=== PATIENT | female | born 1945 | race Caucasian/White ===

== ENCOUNTER 2016-04-25 09:08 | Inpatient (IN) | payer MEDICARE ==
[~2016-04-25] VITALS: Ht 162.6 cm; Wt 65.0 kg
[2016-04-25] VITALS (10 sets, daily range): BP systolic 99–118; BP diastolic 50–73; PULSE 73–102; RESP 16–22; TEMP 97.4–98.9; O2SAT 89–95
[2016-04-25] MEDS ORDERED: FLUV20CA3 PO (09:36)
[2016-04-25] MEDS ORDERED: ALBUAER3 INH (09:36)
[2016-04-25] MEDS ORDERED: CITA20TA4 PO (09:36)
[2016-04-25] MEDS ORDERED: LEVO25TA4 PO (09:36)
[2016-04-25] MEDS ORDERED: SYMB160A INH (09:36)
[2016-04-25] MEDS ORDERED: EQ A PO (09:36)
[2016-04-25] MEDS ORDERED: SPIRCAP INH (09:36)
[2016-04-25] MEDS ORDERED: FEXO1TAB41 PO (09:36)
[2016-04-25] MEDS ORDERED: methylPREDNISolone SOD SUCC 125 MG/2 ML VIAL IVP ONE (10:15)
[2016-04-25] MEDS ORDERED: SODIUM CHLORIDE 0.9% FLUSH 5 ML FLUSH IVF PRN ×2 (10:15→14:15)
--- NOTE | 2016-04-25 10:20 | PD ---
HPI Chief Complaint: Cold / Flu Symptoms Time Seen by Provider: 10:11 Travel History International Travel<30 days: No Contact w/Intl Traveler<30days: No History of Present Illness HPI Patient is a 71-year-old female with history of COPD, hypertension, emergency room with complaints of cough, congestion, COPD exacerbation for the past 3 days. Patient reports that she has been here in [place] visiting a friend, reports that she arrived here 3 days ago from [place], reports that since she has been here, she has had increased cough, congestion and productive sputum. Patient reports that she has been wheezing, reports no fevers or chills. Reports exacerbation of her COPD. Patient reports that she does not use home O2 at baseline, reports that she has since quit smoking cigarettes. Denies any chest pain at this time. PFSH Past Medical History Cancer: Yes (BREAST CA) Respiratory: Yes Radiation Therapy: Yes Thyroid Disease: Yes Influenza Vaccination: Yes ?: Not LMP: 1986 Menopausal: Yes Past Surgical History Tonsillectomy: Yes Other Surgery: Yes (CANCER REMOVED FROM LEFT BREAST) Social History Alcohol Use: Yes (rarely) Tobacco Use: No Substance Use: No Allergies-Medications (Allergen,Severity, Reaction): Coded Allergies: Codeine (Verified Adverse Reaction, Severe, VOMITING, 04/25/16) Reported Meds & Prescriptions Reported Meds & Active Scripts Active Reported Mucinex Allergy (Fexofenadine HCl) 180 Mg Tab 180 Mg PO DAILY Proair Hfa 8.5 GM Inh (Albuterol Sulfate) 90 Mcg/Act Aer 2 Puff INH Q6H PRN 108 mcg/actuation Symbicort Inh (Budesonide/Formoterol Fumarate) 160-4.5 Mcg/Act Aero 2 Puff INH Q12HR Citalopram (Citalopram Hydrobromide) 20 Mg Tab 20 Mg PO HS Spiriva Handihaler (Tiotropium Inh) 18 Mcg Cap 18 Mcg INH DAILY 1 capsule = 18 mcg Eq Allergy Relief (Loratadine) 10 Mg Tab 10 Mg PO DAILY Fluvastatin (Fluvastatin Sodium) 20 Mg Cap 20 Mg PO BID Levothyroxine (Levothyroxine Sodium) 25 Mcg Tab 20 Mcg PO DAILY Review of Systems General / Constitutional: No: Fever, Chills Eyes: No: Visual changes HENT: No: Headaches Cardiovascular: No: Chest Pain or Discomfort, Palpitations, Irregular Rhythm Respiratory: Positive: Cough, Shortness of Breath, Wheezing Gastrointestinal: No: Abdominal Pain Genitourinary: Positive: Urgency, Frequency, Dysuria Musculoskeletal: No: Pain Skin: No Rash Neurologic: No: Weakness Psychiatric: No: Depression Endocrine: No: Polydipsia Hematologic/Lymphatic: No: Easy Bruising Physical Exam Narrative GENERAL: Mild distress SKIN: Warm and dry. HEAD: Atraumatic. Normocephalic. EYES: No injection or drainage. ENT: No nasal bleeding or discharge. Mucous membranes pink and moist. NECK: Trachea midline. No JVD. CARDIOVASCULAR: Regular rate and rhythm. No murmur appreciated. RESPIRATORY: No accessory muscle use. Patient with scattered wheezing throughout upper and lower lungs GASTROINTESTINAL: Abdomen soft, non-tender, nondistended. Hepatic and splenic margins not palpable. MUSCULOSKELETAL: No obvious deformities. No clubbing. No cyanosis. No edema. NEUROLOGICAL: Awake and alert. No obvious cranial nerve deficits. Motor grossly within normal limits. Normal speech. PSYCHIATRIC: Appropriate mood and affect; insight and judgment normal. Data Data Last Documented VS Vital Signs Date Time Temp Pulse Resp B/P Pulse Ox O2 Delivery O2 Flow Rate FiO2 04/25/16 11:17 73 22 118/57 92 Room Air 04/25/16 10:15 21 04/25/16 09:29 2 04/25/16 09:17 98.9 Orders Complete Blood Count With Diff (04/25/16 10:14) Comprehensive Metabolic Panel (04/25/16 10:14) Act Partial Throm Time (Ptt) (04/25/16 10:14) Prothrombin Time / Inr (Pt) (04/25/16 10:14) Influenzae A/B Antigen (04/25/16 10:14) Iv Access Insert/Monitor (04/25/16 10:14) Oximetry (04/25/16 10:14) Chest, Single Ap (04/25/16 10:14) Sodium Chloride 0.9% Flush (Ns Flush) (04/25/16 10:15) Methylprednisolone So Succ Inj (Solumedr (04/25/16 10:15) Albuterol-Ipratropium Neb (Duoneb Neb) (04/25/16 10:15) Urinalysis - C+S If Indicated (04/25/16 10:14) Electrocardiogram (04/25/16 ) B-Type Natriuretic Peptide (04/25/16 10:45) Ckmb (Isoenzyme) Profile (04/25/16 10:45) Troponin I (04/25/16 10:45) Urine Culture (04/25/16 10:35) CKMB (04/25/16 10:30) CKMB% (04/25/16 10:30) Azithromycin Inj (Zithromax Inj) (04/25/16 12:00) Ceftriaxone Inj (Rocephin Inj) (04/25/16 12:00) Albuterol Neb (Albuterol Neb) (04/25/16 12:15) Aspirin (Aspirin) (04/25/16 12:15) Admit Order (Ed Use Only) (04/25/16 12:32) Labs Laboratory Tests Test 04/25/16 04/25/16 10:30 10:35 White Blood Count 8.5 TH/MM3 Red Blood Count 4.77 MIL/MM3 Hemoglobin 14.2 GM/DL Hematocrit 41.4 % Mean Corpuscular Volume 86.7 FL Mean Corpuscular Hemoglobin 29.8 PG Mean Corpuscular Hemoglobin 34.4 % Concent Red Cell Distribution Width 14.0 % Platelet Count 324 TH/MM3 Mean Platelet Volume 8.4 FL Neutrophils (%) (Auto) 78.3 % Lymphocytes (%) (Auto) 9.7 % Monocytes (%) (Auto) 10.8 % Eosinophils (%) (Auto) 0.5 % Basophils (%) (Auto) 0.7 % Neutrophils # (Auto) 6.7 TH/MM3 Lymphocytes # (Auto) 0.8 TH/MM3 Monocytes # (Auto) 0.9 TH/MM3 Eosinophils # (Auto) 0.0 TH/MM3 Basophils # (Auto) 0.1 TH/MM3 CBC Comment DIFF FINAL Differential Comment Prothrombin Time 11.3 SEC Prothromb Time International 1.0 RATIO Ratio Activated Partial 30.3 SEC Thromboplast Time Sodium Level 134 MEQ/L Potassium Level 4.2 MEQ/L Chloride Level 102 MEQ/L Carbon Dioxide Level 23.6 MEQ/L Anion Gap 8 MEQ/L Blood Urea Nitrogen 14 MG/DL Creatinine 0.96 MG/DL Estimat Glomerular Filtration 58 ML/MIN Rate Random Glucose 102 MG/DL Calcium Level 8.4 MG/DL Total Bilirubin 0.8 MG/DL Aspartate Amino Transf 16 U/L (AST/SGOT) Alanine Aminotransferase 17 U/L (ALT/SGPT) Alkaline Phosphatase 92 U/L Total Creatine Kinase 134 U/L Creatine Kinase MB LESS THAN 0.5 NG/ML Troponin I LESS THAN 0.02 NG/ML B-Type Natriuretic Peptide 32 PG/ML Total Protein 7.3 GM/DL Albumin 3.5 GM/DL Urine Color YELLOW Urine Turbidity HAZY Urine pH 6.0 Urine Specific [place] 1.023 Urine Protein 30 mg/dL Urine Glucose (UA) NEG mg/dL Urine Ketones NEG mg/dL Urine Occult Blood TRACE Urine Nitrite NEG Urine Bilirubin NEG Urine Urobilinogen 2.0 MG/DL Urine Leukocyte Esterase LARGE Urine RBC 8 /hpf Urine WBC /hpf Urine Squamous Epithelial <1 /hpf Cells Urine Bacteria FEW /hpf Urine Mucus FEW /lpf Microscopic Urinalysis Comment CULTURE INDICATED MDM Medical Decision Making Medical Screen Exam Complete: Yes Emergency Medical Condition: Yes Interpretation(s) Vital Signs Date Time Temp Pulse Resp B/P Pulse Ox O2 Delivery O2 Flow Rate FiO2 04/25/16 09:29 82 16 114/73 95 Nasal Cannula 2 04/25/16 09:17 98.9 91 17 116/73 94 Differential Diagnosis Pneumonia, influenza, COPD exacerbation, ACS, electrolyte abnormality, pneumothorax Narrative Course Patient is a 71-year-old female who presents to emergency room with complaints of COPD exacerbation. Patient reports that she just arrived on a plane to [place] from [place] 3 days ago, reports that for the past 3 days, she has had increased cough congestion and thick mucus production. Patient reports that she was a past smoker, does not wear home O2. Patient reports that her pulse ox is always in the low 90s, high 80s. Reports no fevers or chills. Reports increased cough congestion and wheezing for the past 3 days. Reports COPD exacerbation this time. Patient with diffuse wheezing on exam, neb treatments as well as IV steroids ordered. Labs as well as x-ray chest ordered as well. Patient reevaluated, patient had 3 neb treatments, patient reports she is not feeling any better at all. No obvious for COPD exacerbation. Patient also with UTI, will treat with an IV dose of Rocephin. Patient's EKG with normal sinus rhythm at 71 beats for minute, QT/QTC 372/325. Patient with ST segment depressions in V1, V2, V3, V4, patient with ischemic changes with no chest pain at this time. Patient reports that she was told by her primary care doctor that she always has an abnormal EKG. We'll give patient aspirin at this time. Cardiac enzymes ordered. Physician Communication Physician Communication case reviewed with dr. freeman who accepts pt to service Diagnosis Primary Impression: COPD exacerbation Additional Impressions: UTI (urinary tract infection) Abnormal EKG Admitting Information Admitting Physician Requests: Observation Ann De Jesus DO Apr 25, 2016 10:20
--- NOTE | 2016-04-25 10:42 | RADRPT ---
EXAM DATE/TIME: 04/25/2016 10:12 [facility] COMPARISON: No previous studies available for comparison. INDICATIONS : Coughing for three days MEDICAL HISTORY : Chronic obstructive pulmonary disease. SURGICAL HISTORY : None. ENCOUNTER: Initial ACUITY: 3 days PAIN SCORE: 0/10 LOCATION: Bilateral chest FINDINGS: A single AP erect view of the chest was obtained and demonstrates hyperinflation of both lungs. There is streaky coarse opacity at both lung bases with no focal consolidation or effusion. The heart size is within normal limits with no perihilar edema. There is bullous change in the upper lobes. The bon y thorax is intact with surgical clips projected over the left lateral breast and chest wall. CONCLUSION: 1. Changes characteristic of underlying emphysema. 2. Coarse streaky opacity at the lung bases most consistent with scarring and/or atelectasis. Fran Harrison MD on April 25, 2016 at 10:40 Board Certified Radiologist. This report was verified electronically.
[2016-04-25 10:45] LABS: AUTOMATED NEUTROPHIL # 6.7 TH/MM3 (1.8-7.7); BASOPHIL # 0.1 TH/MM3 (0-0.2); BASOPHIL % 0.7 % (0.0-2.0); EOSINOPHIL % 0.5 % (0.0-4.0); HEMATOCRIT 41.4 % (35.0-46.0); HEMO FLAGS DIFF FINAL; LYMPH % 9.7 % (9.0-44.0); LYMPHOCYTE # 0.8 TH/MM3 (1.0-4.8); MEAN CELL VOLUME 86.7 FL (80.0-100.0); MEAN CORPUSCULAR HEMOGLOBIN 29.8 PG (27.0-34.0); MEAN CORPUSCULAR HGB CONC 34.4 % (32.0-36.0); MONO % 10.8 % (0.0-8.0); NEUT % 78.3 % (16.0-70.0); PLATELET COUNT 324 TH/MM3 (150-450); RED BLOOD COUNT 4.77 MIL/MM3 (4.00-5.30); WHITE BLOOD COUNT 8.5 TH/MM3 (4.0-11.0)
[2016-04-25 10:52] LABS: APTT (PATIENT) 30.3 SEC (24.3-30.1); PROTHROMBIN TIME - PATIENT 11.3 SEC (9.8-11.6)
[2016-04-25 10:59] LABS: ALT (GPT) 17 U/L (10-53); ANION GAP 8 MEQ/L (5-15); AST (GOT) 16 U/L (15-37); BICARBONATE 23.6 MEQ/L (21.0-32.0); BLOOD UREA NITROGEN 14 MG/DL (7-18); CHLORIDE 102 MEQ/L (98-107); GLOMERULAR FILTRATION RATE 58 ML/MIN (>89); POTASSIUM 4.2 MEQ/L (3.5-5.1); SODIUM (NA) 134 MEQ/L (136-145)
[2016-04-25 11:02] LABS: ALKALINE PHOSPHATASE 92 U/L (45-117); TOTAL BILIRUBIN ADULT 0.8 MG/DL (0.2-1.0)
[2016-04-25 11:07] LABS: BACTERIA, URINE FEW /hpf; BLOOD, URINE TRACE (NEG); COMMENT (UR) CULTURE INDICATED; CULTURE IF INDICATED CULTURE INDICATED; GLUCOSE,URINE NEG (NEG); KETONE, URINE NEG (NEG); MUCUS URINE FEW /lpf (OCC); NITRITE,URINE NEG (NEG); SQUAMOUS EPITHELIAL CELL URINE <1 /hpf (0-5); URINE COLOR YELLOW (YELLW/STRAW)
[2016-04-25 11:18] LABS: CREATINE KINASE 134 U/L (26-192)
[2016-04-25] MEDS: RESP: ALBUTEROL 2.5 MG/IPRATROPIUM 0.5 MG NEB (SCH) INH ×2 (11:29→11:30)
[2016-04-25 11:39] LABS: CKMB LESS THAN 0.5 NG/ML (0.5-3.6)
[2016-04-25] MEDS ORDERED: cefTRIAXone INJ 1,000 MG in SODIUM CHLORIDE 0.9% INJ 100 ML IV ONE (12:00)
[2016-04-25] MEDS ORDERED: AZITHROMYCIN INJ 500 MG in SODIUM CHLOR 0.9% 250 ML INJ 250 ML IV ONE (12:00)
[2016-04-25] MEDS ORDERED: RESP: ALBUTEROL 2.5 MG/3 ML NEB (SCH) INH ONE (12:15)
[2016-04-25] MEDS ORDERED: ASPIRIN 325 MG TAB PO ONE (12:15)
--- NOTE | 2016-04-25 13:28 | HHI.HP ---
[facility] Service Family Medicine Primary Care Physician Non-Staff Admission Diagnosis COPD Exacerbation Diagnoses: International Travel<30 Days: No Contact w/Intl Traveler<30days: No History of Present Illness Patient is a 71-year-old female with past medical history significant for COPD, hyperlipidemia, anxiety, hypothyroidism presenting due to shortness of breath. Patient reports that she began to develop a cough on 04/22 and since this time her cough has become worse and she is progressively more short of breath. She has used her Spiriva, Symbicort, pro-air and has tried Mucinex and Vicks rub without any improvement. Cough is productive of thick green sputum. She has been able to walk 300 feet before she needs to stop due to shortness of breath. She last saw her medical technician in February who ordered pulmonary function tests; however, patient has not been able to have this done. She denies any prior COPD exacerbations. She has not had fevers, chills and denies any sick contacts. She traveled to [place] from [place] on April 22. She is staying with friends until the end of May. (Mary Rosenberg MD R2) Review of Systems Constitutional: DENIES: Fever, Chills Eyes: COMPLAINS OF: Blurred vision (Chronic) Ears, nose, mouth, throat: DENIES: Vertigo Respiratory: COMPLAINS OF: Cough, Wheezing, Sputum production, Shortness of breath Cardiovascular: COMPLAINS OF: Palpitations, DENIES: Chest pain, Lower Extremity Edema Gastrointestinal: COMPLAINS OF: Abdominal pain, Constipation, DENIES: Diarrhea , Nausea, Vomiting Genitourinary: COMPLAINS OF: Urinary incontinence (new over the past several days), DENIES: Urinary frequency, Dysuria Musculoskeletal: COMPLAINS OF: Back pain Integumentary: DENIES: Rash Neurologic: DENIES: Headache Psychiatric: DENIES: Anxiety, Mood changes (Mary Rosenberg MD R2) Past Family Social History Past Medical History COPD/emphysema Anxiety Hypothyroidism Breast cancer removed in 2011 s/p 3 months radiation Hyperlipemia Past Surgical History Lumpectomy Skin growths removed Tubal ligation in 1977 Reported Medications Reported Meds & Active Scripts Active Reported Mucinex Allergy (Fexofenadine HCl) 180 Mg Tab 180 Mg PO DAILY Proair Hfa 8.5 GM Inh (Albuterol Sulfate) 90 Mcg/Act Aer 2 Puff INH Q6H PRN SOB 108 mcg/actuation Symbicort Inh (Budesonide/Formoterol Fumarate) 160-4.5 Mcg/Act Aero 2 Puff INH Q12HR Citalopram (Citalopram Hydrobromide) 20 Mg Tab 20 Mg PO HS Spiriva Handihaler (Tiotropium Inh) 18 Mcg Cap 18 Mcg INH DAILY 1 capsule = 18 mcg Eq Allergy Relief (Loratadine) 10 Mg Tab 10 Mg PO DAILY Fluvastatin (Fluvastatin Sodium) 20 Mg Cap 20 Mg PO BID Levothyroxine (Levothyroxine Sodium) 25 Mcg Tab 20 Mcg PO DAILY (Mary Rosenberg MD R2) Allergies: Coded Allergies: Codeine (Verified Adverse Reaction, Severe, VOMITING, 04/25/16) Active Ordered Medications Inpatient Medications Albuterol Sulfate (Albuterol Neb) 2.5 mg Q2HR NEB PRN INH SHORTNESS OF BREATH; Start 04/25/16 at 14:15 Albuterol Sulfate (Proair Hfa Inh) 2 puff Q6H PRN INH SHORTNESS OF BREATH; Start 04/25/16 at 14:15 Albuterol/ Ipratropium 1 ampule 1 ampule Q15M INH Last administered on 11:30; Start 04/25/16 at 10:15; Stop 04/25/16 at 10:46; Status DC Aspirin (Aspirin) 325 mg ONCE ONCE PO Last administered on 04/25/16 12:59; Start 04/25/16 at 12:15; Stop 04/25/16 at 12:16; Status DC Azithromycin (Zithromax) 500 mg Q24H PO ; Start 04/26/16 at 12:00; Stop at 11:59 Azithromycin/ Sodium Chloride (Zithromax Inj/ NS 250 ml Inj) 250 ml @ 250 mls/ hr ONCE ONCE IV Last administered on 04/25/16 12:08; Start 04/25/16 at 12:00 ; Stop 04/25/16 at 12:59; Status DC Budesonide/ Formoterol Fumarate (Symbicort 160-4.5 Inh) 2 puff Q12HR INH ; Start 04/25/16 at 21:00 Ceftriaxone Sodium/Sodium Chloride (Rocephin Inj/NS Inj) 100 ml @ 200 mls/hr Q24H IV ; Start 04/26/16 at 12:00 Citalopram Hydrobromide (CeleXA) 20 mg HS PO ; Start 04/25/16 at 21:00 Heparin Sodium (Porcine) (Heparin Inj) 5,000 units Q8H SQ Last administered on 04/25/16t 14:56; Start 04/25/16 at 15:00 IV Flush (NS Flush) 2 ml UNSCH PRN IVF FLUSH AFTER USING IV ACCESS; Start 04/25 at 14:15 Levothyroxine Sodium (Synthroid) 25 mcg DAILY@06 PO ; Start 04/26/16 at 06:00 Loratadine (Claritin) 10 mg DAILY PO ; Start 04/26/16 at 09:00 Methylprednisolone Sodium Succinate (SoluMEDROL INJ) 125 mg ONCE ONCE IVP Last administered on 04/25/16t 10:42; Start 04/25/16 at 10:15; Stop 04/25/16 at 10:17; Status DC Pravastatin Sodium (Pravachol) 20 mg HS PO ; Start 04/25/16 at 21:00 Prednisone 40 mg 40 mg DAILY PO ; Start 04/26/16 at 09:00 Tiotropium [place] (Spiriva Inh) 18 mcg DAILY INH ; Start 04/26/16 at 09:00 Family History Mother: HTN, Breast cancer at 90, Alzheimer's Father: 94, prostate cancer, brothers with hx of colonoscopy Social History 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 Lives in [place]. 40 years 2 PPD, quit 14 years ago. Drinks occasionally, wine or malt beverages. Denies illicit drug use. (Mary Rosenberg MD R2) Physical Exam Vital Signs Vital Signs Date Time Temp Pulse Resp B/P Pulse Ox O2 Delivery O2 Flow Rate FiO2 04/25/16 11:17 73 22 118/57 92 Room Air 04/25/16 10:15 92 21 04/25/16 09:29 82 16 114/73 95 Nasal Cannula 2 04/25/16 09:17 98.9 91 17 116/73 94 Physical Exam GENERAL: This is a well-nourished, well-developed patient, in no acute cardiopulmonary distress. SKIN: No rashes, ecchymoses or lesions. Cool and dry. HEAD: Atraumatic. Normocephalic. No temporal or scalp tenderness. EYES: Pupils equal round and reactive. Extraocular motions intact. No scleral icterus. No injection or drainage. ENT: Nose without bleeding, purulent drainage or septal hematoma. Throat without erythema, tonsillar hypertrophy or exudate. Uvula midline. Airway patent. NECK: Trachea midline. No JVD or lymphadenopathy. Supple, nontender, no meningeal signs. CARDIOVASCULAR: Regular rate and rhythm without murmurs, gallops, or rubs. RESPIRATORY: Normal work of breathing. Diffuse inspiratory and expiratory wheezing. Rhonchi heard in lung bases bilaterally. No use of accessory muscles. Patient speaking in full sentences. GASTROINTESTINAL: Abdomen soft, non-tender, nondistended. No hepato-splenomegaly , or palpable masses. No guarding. MUSCULOSKELETAL: Extremities without clubbing, cyanosis, trace lower extremity edema to knee bilaterally. No joint tenderness, effusion, or edema noted. No calf tenderness. Negative Homans sign bilaterally. NEUROLOGICAL: Awake and alert. Cranial nerves II through XII intact. Motor and sensory grossly within normal limits. Five out of 5 muscle strength in all muscle groups. Normal speech. Laboratory Laboratory Tests Test 04/25/16 04/25/16 10:30 10:35 White Blood Count 8.5 Red Blood Count 4.77 Hemoglobin 14.2 Hematocrit 41.4 Mean Corpuscular Volume 86.7 Mean Corpuscular Hemoglobin 29.8 Mean Corpuscular Hemoglobin 34.4 Concent Red Cell Distribution Width 14.0 Platelet Count 324 Mean Platelet Volume 8.4 Neutrophils (%) (Auto) 78.3 Lymphocytes (%) (Auto) 9.7 Monocytes (%) (Auto) 10.8 Eosinophils (%) (Auto) 0.5 Basophils (%) (Auto) 0.7 Neutrophils # (Auto) 6.7 Lymphocytes # (Auto) 0.8 Monocytes # (Auto) 0.9 Eosinophils # (Auto) 0.0 Basophils # (Auto) 0.1 CBC Comment DIFF FINAL Differential Comment Prothrombin Time 11.3 Prothromb Time International 1.0 Ratio Activated Partial 30.3 Thromboplast Time Sodium Level 134 Potassium Level 4.2 Chloride Level 102 Carbon Dioxide Level 23.6 Anion Gap 8 Blood Urea Nitrogen 14 Creatinine 0.96 Estimat Glomerular Filtration 58 Rate Random Glucose 102 Calcium Level 8.4 Total Bilirubin 0.8 Aspartate Amino Transf 16 (AST/SGOT) Alanine Aminotransferase 17 (ALT/SGPT) Alkaline Phosphatase 92 Total Creatine Kinase 134 Creatine Kinase MB LESS THAN 0.5 Troponin I LESS THAN 0.02 B-Type Natriuretic Peptide 32 Total Protein 7.3 Albumin 3.5 Urine Color YELLOW Urine Turbidity HAZY Urine pH 6.0 Urine Specific [place] 1.023 Urine Protein 30 Urine Glucose (UA) NEG Urine Ketones NEG Urine Occult Blood TRACE Urine Nitrite NEG Urine Bilirubin NEG Urine Urobilinogen 2.0 Urine Leukocyte Esterase LARGE Urine RBC 8 Urine WBC Urine Squamous Epithelial <1 Cells Urine Bacteria FEW Urine Mucus FEW Microscopic Urinalysis Comment CULTURE INDICATED Date/Time Procedure Status Source Growth 04/25/16 10:35 Urine Culture Received Urine Clean Catch Pending 04/25/16 10:30 Influenza Types A,B Antigen (JACQUELINE) - Final Complete Nasal Aspirate NEGATIVE FOR FLU A AND B ANTIGEN.... (Mary Rosenberg MD R2) Result Diagram: 04/25/16 1030 04/25/16 1030 Imaging Last 24 hours Impressions Chest X-Ray 04/25/16 1014 Signed Impressions: Service Date/Time: Monday, April 25, 2016 10:12 - CONCLUSION: 1. Changes characteristic of underlying emphysema. 2. Coarse streaky opacity at the lung bases most consistent with scarring and/or atelectasis. Fran Harrison MD (Mary Rosenberg MD R2) Assessment and Plan Assessment and Plan Patient is a 71-year-old female with past medical history significant for COPD, hyperlipidemia, anxiety, hypothyroidism presenting due to shortness of breath, admitted with COPD exacerbation Code Status Full Discussed Condition With wdw Dr. Membreno, Dr. Cosme, Dr. Kendrick (Mary Rosenberg MD R2) Problem List: (1) COPD exacerbation Status: Acute Plan: Patient admitted due to COPD exacerbation. O2 saturations ranging between 9294 percent on 2 L of nasal cannula. -Supplemental oxygen as needed -DuoNeb's Q6hrs -Rocephin 1 g IV Q24hrs -Azithromycin 500 mg po daily -Prednisone 40 mg po daily -Albuterol [id number] prn SOB -Continue home medications: Pro-air 2 puffs Q6hrs PRN SOB Symbicort 2 puffs BID Spiriva 18mg inh daily Loratadine 10 mg daily Imaging: CXR 04/25/16: Changes characteristic of underlying emphysema. Coarse streaky opacity at the lung bases most consistent with scarring and or atelectasis. History: Patient received Solu-Medrol 125 mg 1 in the ED (2) Abnormal EKG Status: Acute Plan: Patient reports history of abnormal EKG. She has been told that her EKG is abnormal several times in the past. She does not recall the exact abnormality. -EKG in the ED shows sinus rhythm, normal axis, ST deviation and moderate T- wave abnormality. -Initial troponin less than 0.02, total creatinine kinase 134, CK-MB less than 0.5 -We'll get a repeat EKG and set of cardiac enzymes, patient is currently asymptomatic and denies chest pain. (3) UTI (urinary tract infection) Status: Acute Plan: UA with hazy appearance, 30+ protein, trace occult blood, large leuk esterase, 8 red blood cells, few bacteria, few mucus, culture indicated. -Patient currently being treated for COPD exacerbation with Rocephin which will also cover for UTI -Pt denies urinary symptoms -See COPD exacerbation above (4) Anxiety Status: Acute Plan: Continue home citalopram (5) Hyperlipemia Status: Acute Plan: Fluvastatin is not currently available on hospital formulary -Converted to pravastatin 20 mg po HS (6) FEN/PPX Status: Acute Plan: Fluids: None Electrolytes: Sodium slightly low at 134, continue to monitor Nutrition: Heart healthy diet DVT PPX: Heparin (Mary Rosenberg MD R2) Mary Rosenberg MD R2 Apr 25, 2016 13:28 Swetha Membreno MD Apr 26, 2016 09:23
[2016-04-25] MEDS ORDERED: RESP: ALBUTEROL 2.5 MG/3 ML NEB (PRN) INH (14:15)
[2016-04-25] MEDS ORDERED: ALBUTEROL SULFATE 90 MCG/ACT HFA 8 GM INHALER INH PRN (14:15)
[2016-04-25] MEDS: HEPARIN SODIUM - SQ 10,000 UNITS/ML VIAL SQ SCH ×2 (14:56→22:47)
--- NOTE | 2016-04-25 16:39 | HHI.FPPN ---
Subjective Subjective Patient seen and examined. 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 She denies any chest pain, LE edema, nausea, diaphoresis She has a history of tobacco dependence but has not been hospitalized for her COPD in the past and no prior intubations. She denies fevers at home, but presented after her breathing became progressively worse. [facility] Objective Objective Last Impressions Chest X-Ray 04/25/16 1014 Signed Impressions: Service Date/Time: Monday, April 25, 2016 10:12 - CONCLUSION: 1. Changes characteristic of underlying emphysema. 2. Coarse streaky opacity at the lung bases most consistent with scarring and/or atelectasis. Fran Harrison MD Laboratory Tests - Abnormals Test 04/25/16 04/25/16 10:30 10:35 Neutrophils (%) (Auto) 78.3 % Monocytes (%) (Auto) 10.8 % Lymphocytes # (Auto) 0.8 TH/MM3 Activated Partial 30.3 SEC Thromboplast Time Sodium Level 134 MEQ/L Estimat Glomerular Filtration 58 ML/MIN Rate Calcium Level 8.4 MG/DL Creatine Kinase MB LESS THAN 0.5 NG/ML Troponin I LESS THAN 0.02 NG/ML Urine Turbidity HAZY Urine Protein 30 mg/dL Urine Occult Blood TRACE Urine Leukocyte Esterase LARGE Urine RBC 8 /hpf Urine Bacteria FEW /hpf Urine Mucus FEW /lpf Vital Signs 04/25/16 04/25/16 04/25/16 04/25/16 09:17 09:29 10:15 11:17 Temp 98.9 Pulse 91 82 73 Resp 17 16 22 B/P 116/73 114/73 118/57 Pulse Ox 94 95 92 92 O2 Delivery Nasal Cannula Room Air O2 Flow Rate 2 FiO2 21 04/25/16 14:16 Pulse 102 Resp 20 B/P 99/50 Pulse Ox 92 O2 Delivery Nasal Cannula O2 Flow Rate 2 Physical exam GENERAL: Pleasant, thin female, NAD, resting in her hospital bed SKIN: Warm and dry. No rashes HEAD: Normocephalic AT. EYES: No scleral icterus. No injection or drainage. ENT: OP clear. MMM. NC in place. NECK: Supple, trachea midline. No JVD or lymphadenopathy. CARDIOVASCULAR: Regular rate and rhythm without audible murmurs, gallops, or rubs. RESPIRATORY: Breath sounds with extensive exp wheezing across posterior lung acharya. Mild scattered crackles. Prolonged expiratory phase. GASTROINTESTINAL: Abdomen soft, non-tender, nondistended. Thin, no rebound, guarding. MUSCULOSKELETAL: No cyanosis, or edema. No calf tenderness. BACK: Nontender without obvious deformity. No CVA tenderness. NEURO: Awake and alert. Normal speech. CN grossly intact. Assessment Assessment 71yoF admitted with: Acute exacerbation of COPD UTI with history of recurrent UTI HTN Hx tobacco dependence, now in remission Hx L breast CA s/p lumpectomy Stress test 2 years ago neg for ischemia PLAN PLAN Supplemental oxygen as needed Duonebs Empiric antibiotic therapy with Rocephin, Azithro Sputum culture UA with urine culture Prednisone therapy Resume home meds as appropriate Patient seen and examined. Case reviewed and discussed Agree with plan of care as discussed with me and documented in the resident note. Swetha Membreno MD Apr 25, 2016 16:39
[2016-04-25 17:22] LABS: CREATINE KINASE 129 U/L (26-192)
[2016-04-25 17:33] LABS: CKMB 0.7 NG/ML (0.5-3.6)
[2016-04-25] MEDS: RESP: ALBUTEROL 2.5 MG/IPRATROPIUM 0.5 MG NEB (SCH) NEB (19:57)
[2016-04-25] MEDS: SODIUM CHLORIDE 0.9% FLUSH 5 ML FLUSH IVF SCH (20:29)
[2016-04-25] MEDS: CITALOPRAM HYDROBROMIDE 20 MG TAB PO SCH (20:42)
[2016-04-25] MEDS: BUDESONIDE-FORMOTEROL 160/4.5 MCG INHALER INH SCH (20:42)
[2016-04-25] MEDS: PRAVASTATIN SOD 10 MG TAB PO SCH (20:42)
[2016-04-26] VITALS (7 sets, daily range): BP systolic 108–130; BP diastolic 66–80; PULSE 70–108; RESP 16–22; TEMP 97.4–101; O2SAT 91–95
[2016-04-26] MEDS: LEVOTHYROXINE SODIUM 25 MCG TAB PO SCH (06:14)
[2016-04-26] MEDS: HEPARIN SODIUM - SQ 10,000 UNITS/ML VIAL SQ SCH ×3 (06:15→22:56)
[2016-04-26 07:04] LABS: BASOPHIL % 0.3 % (0.0-2.0); HEMATOCRIT 39.7 % (35.0-46.0); HEMO FLAGS DIFF FINAL; LYMPHOCYTE # 0.8 TH/MM3 (1.0-4.8); MEAN CELL VOLUME 86.6 FL (80.0-100.0); MEAN CORPUSCULAR HEMOGLOBIN 29.6 PG (27.0-34.0); MEAN CORPUSCULAR HGB CONC 34.1 % (32.0-36.0); MONO % 8.9 % (0.0-8.0); NEUT % 83.8 % (16.0-70.0); PLATELET COUNT 319 TH/MM3 (150-450); RED BLOOD COUNT 4.58 MIL/MM3 (4.00-5.30); RED CELL DISTRIBUTION WIDTH 14.3 % (11.6-17.2); WHITE BLOOD COUNT 10.8 TH/MM3 (4.0-11.0)
[2016-04-26 07:28] LABS: BICARBONATE 23.3 MEQ/L (21.0-32.0); POTASSIUM 4.1 MEQ/L (3.5-5.1)
--- NOTE | 2016-04-26 08:15 | EKG ---
Date Performed: 04/25/2016 Time Performed: 10:40:34 PTAGE: 71 years EKG: Sinus rhythm ST DEVIATION AND MODERATE T-WAVE ABNORMALITY, CONSIDER ANTEROLATERAL ISCHEMIA ABNORMAL ECG NO PREVIOUS TRACING DOCTOR: Drew Rosenberg Interpretating Date/Time 04/26/2016 08:13:27
[2016-04-26] MEDS ORDERED: predniSONE 20 MG TAB PO SCH (09:00)
[2016-04-26] MEDS: RESP: ALBUTEROL 2.5 MG/IPRATROPIUM 0.5 MG NEB (SCH) NEB ×4 (09:49→19:59)
[2016-04-26] MEDS ORDERED: CALCIUM CARBONATE 1.25 GM (CA 500 MG) TAB PO ONE (10:30)
[2016-04-26] MEDS ORDERED: BENZONATATE 100 MG CAP PO PRN (10:30)
[2016-04-26] MEDS: cefTRIAXone INJ 1,000 MG in SODIUM CHLORIDE 0.9% INJ 100 ML IV SCH (11:26)
[2016-04-26] MEDS: PANTOPRAZOLE SOD 40 MG DELAYED RELEASE TAB PO SCH (11:26)
[2016-04-26] MEDS: LORATADINE 10 MG TAB PO SCH (11:26)
[2016-04-26] MEDS: BUDESONIDE-FORMOTEROL 160/4.5 MCG INHALER INH SCH ×2 (11:27→22:55)
[2016-04-26] MEDS: SODIUM CHLORIDE 0.9% FLUSH 5 ML FLUSH IVF SCH ×2 (11:27→22:55)
[2016-04-26] MEDS: AZITHROMYCIN 250 MG TAB PO SCH (11:27)
[2016-04-26] MEDS: TIOTROPIUM BROMIDE 18 MCG INH INH SCH (12:25)
--- NOTE | 2016-04-26 14:10 | HHI.FPPN ---
Subjective Remarks Pt seen and examined. Patient has been afebrile, RR 16-22, O2 saturation ranging from 8992 percent on 23 liters nasal cannula. She continues to feel short of breath no significant improvement this morning. She endorses a productive cough. Denies chest pain, abdominal pain, leg pain. (Mary Rosenberg MD R2) Objective Vitals Vital Signs Date Time Temp Pulse Resp B/P Pulse Ox O2 Delivery O2 Flow Rate FiO2 04/26/16 11:28 98.6 88 16 108/66 92 04/26/16 09:51 92 Nasal Cannula 2.00 04/26/16 07:42 98.3 71 22 115/69 93 04/26/16 05:54 97.4 70 18 108/66 91 04/25/16 23:46 97.4 76 18 102/56 91 04/25/16 22:02 97.4 86 18 109/58 91 04/25/16 20:25 95 22 116/61 89 Nasal Cannula 3 04/25/16 19:58 95 Nasal Cannula 3.00 04/25/16 16:48 84 20 105/57 91 Nasal Cannula 2 04/25/16 14:16 102 20 99/50 92 Nasal Cannula 2 (Mary Rosenberg MD R2) Result Diagram: 04/26/16 0604/26/16 06 Objective Remarks GENERAL: This is a well-nourished, well-developed patient. SKIN: No rashes, ecchymoses or lesions. Cool and dry. HEENT: Atraumatic. Normocephalic. Extraocular motions intact. No scleral icterus. Uvula midline. Airway patent. CARDIOVASCULAR: Regular rate and rhythm without murmurs, gallops, or rubs. RESPIRATORY: Increased work of breathing. Diffuse inspiratory and expiratory wheezing. Decreased breath sounds and crackles in lung bases bilaterally. No use of accessory muscles. Patient speaking in shorter sentences. GASTROINTESTINAL: Abdomen soft, non-tender, nondistended. + bowel sounds. MUSCULOSKELETAL: Extremities without clubbing, cyanosis, trace lower extremity edema to knee bilaterally. No calf tenderness. Negative Homans sign bilaterally. NEUROLOGICAL: Awake and alert. Motor and sensory grossly within normal limits. Normal speech. (Mary Rosenberg MD R2) A/P Assessment and Plan Patient is a 71-year-old female with past medical history significant for COPD, hyperlipidemia, anxiety, hypothyroidism presenting due to shortness of breath, admitted with COPD exacerbation Discharge Planning Discharge pending improvement in respiratory status. Likely [address] Membreno, Dr. Cosme. Dr. Kendrick, Dr. Stockton (Mary Rosenberg MD R2) Attending Attestation Patient seen and examined with the resident team. Case reviewed and discussed. Agree with plan of care as discussed with me and documented in the resident note. Breathing slightly worse today compared to admission. Denies chest pain. Will increase prednisone to IV Solu-Medrol. (Swetha Membreno MD) Problem List: (1) COPD exacerbation Status: Acute Plan: Patient admitted due to COPD exacerbation. O2 saturations ranging between 8992 percent on 2-3 L of nasal cannula. -Supplemental oxygen as needed -DuoNeb's Q4hrs while awake -Rocephin 1 g IV Q24hrs -Azithromycin 500 mg po daily -Albuterol [id number] prn SOB -Solu-Medrol 40 mg IV Q8hrs -Tessalon Perles PRN cough -Robitussin-DM prn cough -Sputum culture pending -Pulmonary function tests ordered -Continue home medications: Pro-air 2 puffs Q6hrs PRN SOB Symbicort 2 puffs BID Spiriva 18mg inh daily Loratadine 10 mg daily Imaging: CXR 04/25/16: Changes characteristic of underlying emphysema. Coarse streaky opacity at the lung bases most consistent with scarring and or atelectasis. (2) Abnormal EKG Status: Acute Plan: Patient reports history of abnormal EKG. She has been told that her EKG is abnormal several times in the past. She does not recall the exact abnormality. -EKG in the ED shows sinus rhythm, normal axis, ST deviation and moderate T- wave abnormality. -Initial troponin less than 0.02, total creatinine kinase 134, CK-MB less than 0.5 -We'll get a repeat EKG and set of cardiac enzymes, patient is currently asymptomatic and denies chest pain. (3) UTI (urinary tract infection) Status: Acute Plan: UA with hazy appearance, 30+ protein, trace occult blood, large leuk esterase, 8 red blood cells, few bacteria, few mucus, culture indicated. -Patient currently being treated for COPD exacerbation with Rocephin which will also cover for UTI -Urine culture final showing 10-50,000 mixed gram-positive juan, probable contaminant -Pt denies urinary symptoms -See COPD exacerbation above (4) Anxiety Status: Acute Plan: Continue home citalopram (5) Hyperlipemia Status: Acute Plan: -Pravastatin 20 mg po HS (6) Insomnia Status: Acute Plan: Melatonin 5 mg po HS prn (7) Hypothyroidism Status: Acute Plan: Levothyroxine 25 g po daily (8) FEN/PPX Status: Acute Plan: Fluids: None Electrolytes: Calcium low at 8.3, calcium carbonate 500 mg po x1, continue to monitor Nutrition: Heart healthy diet DVT PPX: Heparin GI PPX: Protonix (Mary Rosenberg MD R2) Mary Rosenberg MD R2 Apr 26, 2016 14:10 Swetha Membreno MD Apr 26, 2016 16:00
[2016-04-26] MEDS: methylPREDNISolone SOD SUCC 40 MG/1 ML VIAL IV PUSH SCH ×2 (15:03→22:55)
[2016-04-26] MEDS ORDERED: ONDANSETRON HCL 4 MG/2 ML VIAL IV PUSH PRN (15:30)
[2016-04-26] MEDS ORDERED: guaiFENesin/DEXTROMETHORPHAN 200 MG/20 MG/10 ML CUP PO PRN (15:30)
[2016-04-26] MEDS ORDERED: cloNIDine HCL 0.1 MG TAB PO PRN (15:30)
--- NOTE | 2016-04-26 17:38 | HHI.PR ---
Addendum to Inpatient Note Addendum Reason: Additional Documentation Additional Information S: Pt re-evaluated because of c/f lack of improvement this morning. Pt reports improvement this afternoon. Nausea med and cough meds helping. O: Vital Signs Date Time Temp Pulse Resp B/P Pulse Ox O2 Delivery O2 Flow Rate FiO2 04/26/16 15:57 100.9 108 18 130/74 92 04/26/16 09:51 Nasal Cannula 2.00 04/25/16 10:15 21 Gen: Pt lying in bed in NAD Resp: Coarse inspiratory breath sounds and expiratory wheezes, diffusely A/P: Pt with COPD exacerbation now improving. - continue Magui Hyman, Tessalon, IV steroids, abx sdw Dr. Mary Rosenberg. Fran Kendrick MD R1 Apr 26, 2016 17:38
[2016-04-26] MEDS ORDERED: ACETAMINOPHEN 325 MG TAB PO PRN ×2 (18:30)
[2016-04-26] MEDS: CITALOPRAM HYDROBROMIDE 20 MG TAB PO SCH (22:55)
[2016-04-26] MEDS: PRAVASTATIN SOD 10 MG TAB PO SCH (22:55)
[2016-04-26] MEDS: MELATONIN 5 MG TAB PO PRN (22:56)
[2016-04-27] VITALS (10 sets, daily range): BP systolic 100–117; BP diastolic 61–70; PULSE 65–75; RESP 18–22; TEMP 97.2–98.8; O2SAT 91–98
[2016-04-27] MEDS: LEVOTHYROXINE SODIUM 25 MCG TAB PO SCH (06:22)
[2016-04-27] MEDS: methylPREDNISolone SOD SUCC 40 MG/1 ML VIAL IV PUSH SCH ×3 (06:22→22:30)
[2016-04-27] MEDS: HEPARIN SODIUM - SQ 10,000 UNITS/ML VIAL SQ SCH ×3 (06:45→22:33)
[2016-04-27 07:01] LABS: AUTOMATED NEUTROPHIL # 8.2 TH/MM3 (1.8-7.7); BASOPHIL % 0.1 % (0.0-2.0); HEMATOCRIT 40.5 % (35.0-46.0); HEMO FLAGS DIFF FINAL; LYMPH % 7.9 % (9.0-44.0); LYMPHOCYTE # 0.7 TH/MM3 (1.0-4.8); MEAN CELL VOLUME 88.2 FL (80.0-100.0); MEAN CORPUSCULAR HEMOGLOBIN 29.6 PG (27.0-34.0); MEAN CORPUSCULAR HGB CONC 33.6 % (32.0-36.0); PLATELET COUNT 318 TH/MM3 (150-450); RED BLOOD COUNT 4.59 MIL/MM3 (4.00-5.30); RED CELL DISTRIBUTION WIDTH 14.2 % (11.6-17.2); WHITE BLOOD COUNT 9.4 TH/MM3 (4.0-11.0)
[2016-04-27 07:24] LABS: POTASSIUM 4.9 MEQ/L (3.5-5.1)
[2016-04-27] MEDS: BUDESONIDE-FORMOTEROL 160/4.5 MCG INHALER INH SCH ×2 (08:12→22:28)
[2016-04-27] MEDS: TIOTROPIUM BROMIDE 18 MCG INH INH SCH (08:12)
[2016-04-27] MEDS: SODIUM CHLORIDE 0.9% FLUSH 5 ML FLUSH IVF SCH ×2 (08:13→22:29)
[2016-04-27] MEDS: LORATADINE 10 MG TAB PO SCH (08:13)
[2016-04-27] MEDS: PANTOPRAZOLE SOD 40 MG DELAYED RELEASE TAB PO SCH (08:13)
[2016-04-27] MEDS: RESP: ALBUTEROL 2.5 MG/IPRATROPIUM 0.5 MG NEB (SCH) NEB ×4 (09:02→20:51)
--- NOTE | 2016-04-27 09:57 | HHI.FPPN ---
Subjective Remarks Pt seen and examined this morning. No acute events overnight. Pt reports that her breathing has improved from yesterday. Continues to feel short of breath with walking. Continues to have a productive cough, cough medications have been helping. She is not yet back at baseline. Currently on 4L NC, O2 saturation 88. (Mary Rosenberg MD R2) Objective Vitals Vital Signs Date Time Temp Pulse Resp B/P Pulse Ox O2 Delivery O2 Flow Rate FiO2 04/27/16 09:02 93 Nasal Cannula 4.00 04/27/16 07:43 98.0 65 22 117/70 91 04/27/16 05:19 97.2 67 18 112/65 93 04/27/16 04:15 98 2.00 04/27/16 00:31 97.7 69 18 113/68 96 04/26/16 19:39 97.8 86 18 118/80 95 04/26/16 18:18 101.0 04/26/16 15:57 100.9 108 18 130/74 92 04/26/16 11:28 98.6 88 16 108/66 92 (Mary Rosenberg MD R2) Result Diagram: 04/27/16 0625 04/27/16 0625 Objective Remarks GENERAL: This is a well-nourished, well-developed patient. In no acute respiratory distress. SKIN: No rashes, ecchymoses or lesions. Cool and dry. HEENT: Atraumatic. Normocephalic. Extraocular motions intact. No scleral icterus. Uvula midline. Airway patent. CARDIOVASCULAR: Regular rate and rhythm without murmurs, gallops, or rubs. RESPIRATORY: Occasional wheeze in upper lung acharya, diffuse crackles. Normal work of breathing. Decreased breath sounds at lung bases bilaterally. No use of accessory muscles, normal work of breathing. Patient speaking in full sentences. GASTROINTESTINAL: Abdomen soft, non-tender, nondistended. + bowel sounds. MUSCULOSKELETAL: Extremities without clubbing, cyanosis, trace lower extremity edema to knee bilaterally. No calf tenderness. Negative Homans sign bilaterally. NEUROLOGICAL: Awake and alert. Motor and sensory grossly within normal limits. Normal speech. (Mary Rosenberg MD R2) A/P Assessment and Plan Patient is a 71-year-old female with past medical history significant for COPD, hyperlipidemia, anxiety, hypothyroidism presenting due to shortness of breath, admitted with COPD exacerbation Discharge Planning Discharge pending improvement in respiratory status. Likely [address] Membreno (Mary Rosenberg MD R2) Attending Attestation Patient seen and examined. Case reviewed and discussed with the resident team Agree with plan of care as discussed with me and documented in the resident note. Patient reports feeling better with increase in steroids CTA ordered given persistent hypoxia in patient with recent travel to r/o PE. ( Swetha Membreno MD) Problem List: (1) COPD exacerbation Status: Acute Plan: Patient admitted due to COPD exacerbation. Patient requiring 2-4 L of nasal cannula. -Supplemental oxygen as needed -DuoNeb's Q4hrs while awake -Rocephin 1 g IV Q24hrs -Azithromycin 500 mg po daily -Albuterol [id number] prn SOB -Solu-Medrol 40 mg IV Q8hrs, will decreased and change to PO as pt improves -Tessalon Perles scheduled TID -Robitussin-DM scheduled Q6hrs -Sputum culture from 04/25 with heavy growth of normal respiratory juan -Pulmonary function tests ordered -Consider follow-up chest x-ray -Continue home medications: Pro-air 2 puffs Q6hrs PRN SOB Symbicort 2 puffs BID Spiriva 18mg inh daily Loratadine 10 mg daily Imaging: CXR 04/25/16: Changes characteristic of underlying emphysema. Coarse streaky opacity at the lung bases most consistent with scarring and or atelectasis. (2) Abnormal EKG Status: Acute Plan: Patient reports history of abnormal EKG. She has been told that her EKG is abnormal several times in the past. She does not recall the exact abnormality. -EKG in the ED shows sinus rhythm, normal axis, ST deviation and moderate T- wave abnormality. -Initial troponin less than 0.02 x2, total creatinine kinase 134-->129, CK-MB less than 0.5-->0.7 -Patient continues to be asymptomatic, denies chest pain . (3) UTI (urinary tract infection) Status: Acute Plan: UA with hazy appearance, 30+ protein, trace occult blood, large leuk esterase, 8 red blood cells, few bacteria, few mucus, culture indicated. -Patient currently being treated for COPD exacerbation with Rocephin which will also cover for UTI -Urine culture final showing 10-50,000 mixed gram-positive juan, probable contaminant -Pt denies urinary symptoms -See COPD exacerbation above (4) Anxiety Status: Acute Plan: -Continue home citalopram (5) Hyperlipemia Status: Acute Plan: -Pravastatin 20 mg po HS (6) Insomnia Status: Acute Plan: -Melatonin 5 mg po HS prn (7) Hypothyroidism Status: Acute Plan: Levothyroxine 25 g po daily (8) FEN/PPX Status: Acute Plan: Fluids: None Electrolytes: WNL, continue to monitor Nutrition: Heart healthy diet DVT PPX: Heparin GI PPX: Protonix (Mary Rosenberg MD R2) Mary Rosenberg MD R2 Apr 27, 2016 09:57 Swetha Membreno MD Apr 28, 2016 15:34
[2016-04-27] MEDS: guaiFENesin/DEXTROMETHORPHAN 200 MG/20 MG/10 ML CUP PO SCH ×2 (12:00→17:20)
[2016-04-27] MEDS: cefTRIAXone INJ 1,000 MG in SODIUM CHLORIDE 0.9% INJ 100 ML IV SCH (12:21)
[2016-04-27] MEDS: AZITHROMYCIN 250 MG TAB PO SCH (12:22)
[2016-04-27] MEDS: BENZONATATE 100 MG CAP PO SCH ×2 (12:32→17:52)
[2016-04-27] MEDS ORDERED: IOHEXOL 350 MG/ML 10 ML VIAL (for RAD DIAG) IV ONE (17:30)
--- NOTE | 2016-04-27 17:43 | RADRPT ---
EXAM DATE/TIME: 04/27/2016 17:22 [facility] COMPARISON: No previous studies available for comparison. INDICATIONS : COPD exacerbation with shortness of breath and chest pain worsening progressively. IV CONTRAST: 50 cc Omnipaque 350 (iohexol) IV RADIATION DOSE: 7.25 CTDIvol (mGy) MEDICAL HISTORY : Carcinoma, breast. Radiation therapy. SURGICAL HISTORY : None. ENCOUNTER: Initial ACUITY: 1 week PAIN SCALE: 4/10 LOCATION: Bilateral chest TECHNIQUE: Volumetric scanning of the chest was performed using a pulmonary embolism protocol MIP images were re constructed. Using automated exposure control and adjustment of the mA and/or kV according to patien t size, radiation dose was kept as low as reasonably achievable to obtain optimal diagnostic quality images. FINDINGS: PULMONARY ARTERIES: No filling defects are seen in the pulmonary arteries through the segmental level. LUNGS: Severe, bilateral emphysematous changes. PLEURAE: There is no pleural thickening or pleural effusion. MEDIASTINUM: There is good visualization of the great vessels of the middle mediastinum. No evidence of mediastin al or hilar adenopathy/mass. MUSCULOSKELETAL: Within normal limits for patient age. MISCELLANEOUS: The visualized upper abdominal organs demonstrate no acute abnormality. Small gallstones are seen in gallbladder lumen. CONCLUSION: 1. Emphysematous changes with no acute infiltrate or pulmonary embolus. 2. Cholelithiasis. Villa Gallegos MD on April 27, 2016 at 17:38 Board Certified Radiologist. This report was verified electronically.
[2016-04-27] MEDS: PRAVASTATIN SOD 10 MG TAB PO SCH (22:29)
[2016-04-27] MEDS: CITALOPRAM HYDROBROMIDE 20 MG TAB PO SCH (22:29)
[2016-04-27] MEDS: MELATONIN 5 MG TAB PO PRN (22:37)
--- NOTE | 2016-04-27 23:15 | EKG ---
Date Performed: 04/25/2016 Time Performed: 16:32:27 PTAGE: 71 years EKG: Sinus rhythm ST DEVIATION AND MODERATE T-WAVE ABNORMALITY, CONSIDER ANTEROLATERAL ISCHEMIA ABNORMAL ECG PREVIOUS TRACING : 04/25/2016 10.40 DOCTOR: Jacqueline Jacobs Interpretating Date/Time 04/27/2016 23:10:59
[2016-04-28] VITALS (7 sets, daily range): BP systolic 105–126; BP diastolic 56–63; PULSE 64–87; RESP 18–22; TEMP 98–98.7; O2SAT 91–98
[2016-04-28] MEDS: guaiFENesin/DEXTROMETHORPHAN 200 MG/20 MG/10 ML CUP PO SCH ×6 (00:42→22:28)
[2016-04-28] MEDS: methylPREDNISolone SOD SUCC 40 MG/1 ML VIAL IV PUSH SCH ×2 (06:14→14:15)
[2016-04-28] MEDS: HEPARIN SODIUM - SQ 10,000 UNITS/ML VIAL SQ SCH ×3 (06:14→22:29)
[2016-04-28] MEDS: LEVOTHYROXINE SODIUM 25 MCG TAB PO SCH (06:14)
[2016-04-28 06:31] LABS: MEAN CELL VOLUME 86.5 FL (80.0-100.0); MEAN CORPUSCULAR HGB CONC 34.7 % (32.0-36.0); PLATELET COUNT 303 TH/MM3 (150-450); RED BLOOD COUNT 4.28 MIL/MM3 (4.00-5.30); RED CELL DISTRIBUTION WIDTH 14.1 % (11.6-17.2); REVIEW FLAG FINAL; WHITE BLOOD COUNT 8.6 TH/MM3 (4.0-11.0)
[2016-04-28 06:44] LABS: POTASSIUM 4.4 MEQ/L (3.5-5.1)
[2016-04-28] MEDS: RESP: ALBUTEROL 2.5 MG/IPRATROPIUM 0.5 MG NEB (SCH) NEB ×4 (07:29→20:32)
[2016-04-28] MEDS: PANTOPRAZOLE SOD 40 MG DELAYED RELEASE TAB PO SCH (09:21)
[2016-04-28] MEDS: SODIUM CHLORIDE 0.9% FLUSH 5 ML FLUSH IVF SCH ×2 (09:21→14:18)
[2016-04-28] MEDS: TIOTROPIUM BROMIDE 18 MCG INH INH SCH (09:21)
[2016-04-28] MEDS: LORATADINE 10 MG TAB PO SCH (09:21)
[2016-04-28] MEDS: BUDESONIDE-FORMOTEROL 160/4.5 MCG INHALER INH SCH ×2 (09:21→20:47)
[2016-04-28] MEDS: BENZONATATE 100 MG CAP PO SCH ×3 (09:22→16:26)
--- NOTE | 2016-04-28 11:09 | HHI.FPPN ---
Subjective Remarks Overnight, patient had blood pressure 100s over 50s to 60s, oxygen saturation 92 -95% on 4 L nasal cannula, and then 91 and 95% on 2 L nasal cannula, otherwise afebrile and vital signs stable. Patient reports feeling much better today. She denies any fever, chills, shortness of breath, dyspnea on exertion, chest pain, shortness of breath. She reports that she was able to walk to the bedside commode and then to the sink to wash her hands without any significant shortness of breath. Patient reports constipation. She reports that she has not had a bowel movement in a couple days. (Fran Kendrick MD R1) Objective Vitals Vital Signs Date Time Temp Pulse Resp B/P Pulse Ox O2 Delivery O2 Flow Rate FiO2 04/28/16 07:48 98.1 71 19 113/57 91 04/28/16 07:31 95 Nasal Cannula 2.00 04/28/16 06:22 95 Nasal Cannula 4.00 04/28/16 04:13 98.7 64 18 106/58 97 04/27/16 23:56 98.8 69 18 108/61 97 04/27/16 20:51 94 Nasal Cannula 4.00 04/27/16 20:44 98.1 70 18 100/65 97 04/27/16 15:39 75 18 102/67 93 04/27/16 12:13 98.5 71 20 106/62 92 04/27/16 12:12 I/O 04/27/16 04/27/16 04/27/16 04/28/16 04/28/16 04/28/16 07:00 15:00 23:00 07:00 15:00 23:00 Intake Total 100 ml 640 ml Balance 100 ml 640 ml Intake Oral 640 ml IV Total 100 ml # Voids 2 # Bowel Movements 1 (Fran Kendrick MD R1) Result Diagram: 04/28/16 0601 04/28/[address] Angiography 04/27/16 0000 Signed Impressions: Service Date/Time: Wednesday, April 27, 2016 17:22 - CONCLUSION: 1. Emphysematous changes with no acute infiltrate or pulmonary embolus. 2. Cholelithiasis. Villa Gallegos MD Chest X-Ray 04/25/16 1014 Signed Impressions: Service Date/Time: Monday, April 25, 2016 10:12 - CONCLUSION: 1. Changes characteristic of underlying emphysema. 2. Coarse streaky opacity at the lung bases most consistent with scarring and/or atelectasis. Fran Harrison MD Objective Remarks GENERAL: This is a well-nourished, well-developed woman patient. In no acute respiratory distress. Nasal cannula in place to 2 L/m. SKIN: No rashes, ecchymoses or lesions. Cool and dry. HEENT: Atraumatic. Normocephalic. Extraocular motions intact. No scleral icterus. Moist mucous membranes. Airway patent. CARDIOVASCULAR: Regular rate and rhythm without murmurs, gallops, or rubs. RESPIRATORY: Expiratory wheezes throughout. No use of accessory muscles, normal work of breathing. Patient speaking in full sentences. GASTROINTESTINAL: Abdomen soft, non-tender, nondistended. + bowel sounds. MUSCULOSKELETAL: Extremities without clubbing, cyanosis, trace lower extremity edema to knee bilaterally. No calf tenderness. NEUROLOGICAL: Awake and alert. Motor and sensory grossly within normal limits. Normal speech. (Fran Kendrick MD R1) A/P Assessment and Plan Patient is a 71-year-old female with past medical history significant for COPD, anxiety, hypothyroidism presenting due to shortness of breath, admitted with COPD exacerbation Discharge Planning Discharge pending improvement in respiratory status. Likely [address] Membreno (Fran Kendrick MD R1) Attending Attestation Patient seen and examined. Case reviewed and discussed Agree with plan of care as discussed with me and documented in the resident note. (Swetha Membreno MD) Problem List: (1) COPD exacerbation Status: Acute Plan: Patient admitted due to COPD exacerbation. Patient requiring 2 L/m of nasal cannula. -Supplemental oxygen as needed; wean oxygen to keep oxygen saturations above 89% -DuoNeb's Q4hrs while awake -Rocephin 1 g IV Q24hrs (04/26-04/28) -Azithromycin 500 mg po daily (04/26-04/28) -Levaquin 750 mg by mouth daily for a total of 5 days, so 2 more days starting tomorrow -Probiotic Lactinex 1 tab by mouth 3 times a day -Albuterol nebulizer Q2hrs prn SOB -Discontinued Solu-Medrol 40 mg IV Q8hrs -Prednisone 50 mg by mouth daily -Tesjorge Doe scheduled TID -Robitussin-DM scheduled Q6hrs -Pulmonary function tests ordered -Consider follow-up chest x-ray -Home O2 walk test tomorrow -Continue home medications: Pro-air 2 puffs Q6hrs PRN SOB Symbicort 2 puffs BID Spiriva 18mg inh daily Loratadine 10 mg daily Imaging: CXR 04/25/16: Changes characteristic of underlying emphysema. Coarse streaky opacity at the lung bases most consistent with scarring and or atelectasis. Work up: -Sputum culture from 04/25 with heavy growth of normal respiratory juan -Blood culture with no growth to date Antibiotic history: (2) Constipation Status: Acute Plan: Patient reports constipation. She reports that she has not had a bowel movement in a couple days. Cathleen-Colace one tab by mouth twice a day MiraLAX 17 g by mouth daily when necessary for constipation (3) Abnormal EKG Status: Acute Plan: Patient reports history of abnormal EKG. She has been told that her EKG is abnormal several times in the past. She does not recall the exact abnormality. -EKG in the ED shows sinus rhythm, normal axis, ST deviation and moderate T- wave abnormality. -Initial troponin less than 0.02 x2, total creatinine kinase 134-->129, CK-MB less than 0.5-->0.7 -Patient continues to be asymptomatic, denies chest pain . (4) UTI (urinary tract infection) Status: Acute Plan: UA with hazy appearance, 30+ protein, trace occult blood, large leuk esterase, 8 red blood cells, few bacteria, few mucus, culture indicated. -Patient currently being treated for COPD exacerbation with Rocephin which will also cover for UTI -Urine culture final showing 10-50,000 mixed gram-positive juan, probable contaminant -Pt denies urinary symptoms -See COPD exacerbation above (5) Anxiety Status: Acute Plan: -Continue home citalopram (6) Hyperlipemia Status: Acute Plan: -Pravastatin 20 mg po HS (7) Insomnia Status: Acute Plan: -Melatonin 5 mg po HS prn (8) Hypothyroidism Status: Acute Plan: Levothyroxine 25 g po daily (9) FEN/PPX Status: Acute Plan: Fluids: None Electrolytes: WNL, continue to monitor Nutrition: Heart healthy diet DVT PPX: Heparin GI PPX: Protonix (Fran Kendrick MD R1) Fran Kendrick MD R1 Apr 28, 2016 11:09 Swetha Membreno MD May 02, 2016 09:13
[2016-04-28] MEDS ORDERED: POLYETHYLENE GLYCOL 17 GM PKG PO PRN (11:15)
[2016-04-28] MEDS: DOCUSATE SODIUM 50 MG/SENNA 8.6 MG TAB PO SCH ×2 (14:14→20:48)
[2016-04-28] MEDS: cefTRIAXone INJ 1,000 MG in SODIUM CHLORIDE 0.9% INJ 100 ML IV SCH (14:14)
[2016-04-28] MEDS: LACTOBACILLUS ACIDOPHILUS TAB PO SCH ×2 (14:18→16:26)
[2016-04-28] MEDS ORDERED: LEVOFLOXACIN 750 MG TAB PO SCH (16:00)
[2016-04-28] MEDS ORDERED: AZITHROMYCIN 250 MG TAB PO ONE (16:00)
[2016-04-28] MEDS: predniSONE 50 MG TAB PO SCH (16:27)
[2016-04-28] MEDS: PRAVASTATIN SOD 10 MG TAB PO SCH (20:48)
[2016-04-28] MEDS: MELATONIN 5 MG TAB PO PRN (20:48)
[2016-04-28] MEDS: CITALOPRAM HYDROBROMIDE 20 MG TAB PO SCH (20:48)
[2016-04-28] MEDS: CALCIUM CARBONATE 500 MG CHEWABLE TAB CHEW SCH (23:15)
[2016-04-29] VITALS: BP 132/78; PULSE 88; RESP 21; TEMP 98.8; O2SAT 98
[2016-04-29 04:13] VITALS: BP 123/68; PULSE 66; RESP 18; TEMP 98.8; O2SAT 98
[2016-04-29] MEDS: guaiFENesin/DEXTROMETHORPHAN 200 MG/20 MG/10 ML CUP PO SCH ×2 (05:48→13:47)
[2016-04-29] MEDS: HEPARIN SODIUM - SQ 10,000 UNITS/ML VIAL SQ SCH ×2 (06:14→13:46)
[2016-04-29] MEDS: LEVOTHYROXINE SODIUM 25 MCG TAB PO SCH (06:14)
[2016-04-29 07:31] VITALS: BP 134/74; PULSE 63; RESP 14; TEMP 98.1; O2SAT 94
[2016-04-29 07:45] LABS: HEMATOCRIT 36.4 % (35.0-46.0); MEAN CELL VOLUME 87.7 FL (80.0-100.0); MEAN CORPUSCULAR HEMOGLOBIN 29.8 PG (27.0-34.0); MEAN CORPUSCULAR HGB CONC 33.9 % (32.0-36.0); PLATELET COUNT 303 TH/MM3 (150-450); RED BLOOD COUNT 4.16 MIL/MM3 (4.00-5.30); RED CELL DISTRIBUTION WIDTH 14.2 % (11.6-17.2); REVIEW FLAG FINAL; WHITE BLOOD COUNT 10.2 TH/MM3 (4.0-11.0)
[2016-04-29 08:05] LABS: BICARBONATE 26.7 MEQ/L (21.0-32.0); POTASSIUM 4.2 MEQ/L (3.5-5.1)
[2016-04-29] MEDS: RESP: ALBUTEROL 2.5 MG/IPRATROPIUM 0.5 MG NEB (SCH) NEB ×2 (08:17→12:48)
[2016-04-29] MEDS ORDERED: LEVOFLOXACIN 750 MG TAB PO SCH (09:00)
[2016-04-29] MEDS: CALCIUM CARBONATE 500 MG CHEWABLE TAB CHEW SCH (09:17)
[2016-04-29] MEDS: DOCUSATE SODIUM 50 MG/SENNA 8.6 MG TAB PO SCH (09:18)
[2016-04-29] MEDS: LACTOBACILLUS ACIDOPHILUS TAB PO SCH ×2 (09:18→13:48)
[2016-04-29] MEDS: BENZONATATE 100 MG CAP PO SCH ×2 (09:18→13:47)
[2016-04-29] MEDS: SODIUM CHLORIDE 0.9% FLUSH 5 ML FLUSH IVF SCH (09:18)
[2016-04-29] MEDS: predniSONE 50 MG TAB PO SCH (09:18)
[2016-04-29] MEDS: TIOTROPIUM BROMIDE 18 MCG INH INH SCH (09:19)
[2016-04-29] MEDS: LORATADINE 10 MG TAB PO SCH (09:19)
[2016-04-29] MEDS: BUDESONIDE-FORMOTEROL 160/4.5 MCG INHALER INH SCH (09:19)
[2016-04-29] MEDS: PANTOPRAZOLE SOD 40 MG DELAYED RELEASE TAB PO SCH (09:19)
[2016-04-29] MEDS ORDERED: LEVA750T PO (10:05)
[2016-04-29] MEDS ORDERED: PRED10 PO (10:05)
[2016-04-29] MEDS ORDERED: PANT40TA3 PO (10:05)
--- NOTE | 2016-04-29 10:07 | HHI.DCPOC ---
Discharge Care Plan Diagnosis: (1) Insomnia (2) Anxiety (3) Hyperlipemia (4) Hypothyroidism (5) Abnormal EKG (6) COPD exacerbation Goals to Promote Your Health * To prevent worsening of your condition and complications * To maintain your health at the optimal level Directions to Meet Your Goals Take your medications as prescribed Follow your dietary instruction Follow activity as directed Keep your appointments as scheduled Take your immunizations and boosters as scheduled If your symptoms worsen call your PCP, if no PCP go to Urgent Care Center or Emergency Room Smoking is Dangerous to Your Health. Avoid second hand smoke Call the 24-hour hour crisis hotline for domestic abuse at Mary Rosenberg MD R2 Apr 29, 2016 10:07
[2016-04-29] MEDS ORDERED: OXYGENTANK NAS.CANULA (10:08)
--- NOTE | 2016-04-29 10:08 | HHI.FPPN ---
Subjective Remarks Pt seen and examined this morning. No acute events overnight. Breathing is significantly improved. She continues to have an occasional productive cough. Denies chest pain, abdominal pain, calf pain. Pt reports feeling back at her baseline. (Mary Rosenberg MD R2) Objective Vitals Vital Signs Date Time Temp Pulse Resp B/P Pulse Ox O2 Delivery O2 Flow Rate FiO2 04/29/16 08:21 Nasal Cannula 2.00 04/29/16 07:31 98.1 63 14 134/74 94 04/29/16 04:13 98.8 66 18 123/68 98 04/29/16 00:00 98.8 88 21 132/78 98 04/28/16 20:29 98.0 73 21 126/63 98 04/28/16 16:38 98.0 87 20 125/62 95 04/28/16 15:40 2.00 04/28/16 11:35 98.3 69 22 105/56 94 I/O 04/28/16 04/28/16 04/28/16 04/29/16 04/29/16 04/29/16 07:00 15:00 23:00 07:00 15:00 23:00 Intake Total 640 ml Balance 640 ml Intake Oral 640 ml # Voids 2 # Bowel Movements 1 (Mary Rosenberg MD R2) Result Diagram: 04/29/1672404/29/16724 Objective Remarks GENERAL: This is a well-nourished, well-developed woman patient. In no acute respiratory distress. Nasal cannula in place to 2 L/m. SKIN: No rashes, ecchymoses or lesions. Cool and dry. HEENT: Atraumatic. Normocephalic. Extraocular motions intact. No scleral icterus. Moist mucous membranes. Airway patent. CARDIOVASCULAR: Regular rate and rhythm without murmurs, gallops, or rubs. RESPIRATORY: Occasional wheeze in upper lung acharya. No use of accessory muscles , normal work of breathing. Patient speaking in full sentences. GASTROINTESTINAL: Abdomen soft, non-tender, nondistended. + bowel sounds. MUSCULOSKELETAL: Extremities without clubbing, cyanosis, trace lower extremity edema to knee bilaterally. No calf tenderness. NEUROLOGICAL: Awake and alert. Motor and sensory grossly within normal limits. Normal speech. (Mary Rosenberg MD R2) A/P Assessment and Plan Patient is a 71-year-old female with past medical history significant for COPD, anxiety, hypothyroidism presenting due to shortness of breath, admitted with COPD exacerbation Discharge Planning Anticipate discharge later today. anai Membreno (Mary Rosenberg MD R2) Attending Attestation Patient seen and examined. Case reviewed and discussed Agree with plan of care as discussed with me and documented in the resident note. (Swetha Membreno MD) Problem List: (1) COPD exacerbation Status: Acute Plan: Patient admitted due to COPD exacerbation. Patient requiring 2 L/m of nasal cannula. -Supplemental oxygen as needed; wean oxygen to keep oxygen saturations above 89% -DuoNeb's Q4hrs while awake -Levaquin 750 mg by mouth daily for a total of 5 days of antibiotics, to be discharged with one additional dose -Albuterol nebulizer Q2hrs prn SOB -Prednisone 50 mg by mouth daily, to be discharged with steroid taper -Tessalon Perles scheduled TID -Robitussin-DM scheduled Q6hrs -Pulmonary function tests -Home O2 walk test tomorrow -Continue home medications: Pro-air 2 puffs Q6hrs PRN SOB Symbicort 2 puffs BID Spiriva 18mg inh daily Loratadine 10 mg daily Imaging: CXR 04/25/16: Changes characteristic of underlying emphysema. Coarse streaky opacity at the lung bases most consistent with scarring and or atelectasis. Work up: -Sputum culture from 04/25 with heavy growth of normal respiratory juan -Blood culture with no growth to date Antibiotic history: -Rocephin 1 g IV Q24hrs (04/26-04/28) -Azithromycin 500 mg po daily (04/26-04/28) (2) Constipation Status: Acute Plan: Patient reports constipation. She reports that she has not had a bowel movement in a couple days. Cathleen-Colace one tab by mouth twice a day MiraLAX 17 g by mouth daily when necessary for constipation -Probiotic Lactinex 1 tab by mouth 3 times a day (3) Abnormal EKG Status: Acute Plan: Patient reports history of abnormal EKG. She has been told that her EKG is abnormal several times in the past. She does not recall the exact abnormality. -EKG in the ED shows sinus rhythm, normal axis, ST deviation and moderate T- wave abnormality. -Initial troponin less than 0.02 x2, total creatinine kinase 134-->129, CK-MB less than 0.5-->0.7 -Patient continues to be asymptomatic, denies chest pain . (4) Anxiety Status: Acute Plan: -Continue home citalopram (5) Hyperlipemia Status: Acute Plan: -Pravastatin 20 mg po HS (6) Insomnia Status: Acute Plan: -Melatonin 5 mg po HS prn (7) Hypothyroidism Status: Acute Plan: Levothyroxine 25 g po daily (8) FEN/PPX Status: Acute Plan: Fluids: None Electrolytes: WNL, continue to monitor Nutrition: Heart healthy diet DVT PPX: Heparin GI PPX: Protonix (Mary Rosenberg MD R2) Mary Rosenberg MD R2 Apr 29, 2016 10:08 Swetha Membreno MD May 03, 2016 13:24 Plan: Fluids: None Electrolytes: WNL, continue to monitor Nutrition: Heart healthy diet DVT PPX: Heparin GI PPX: Protonix Mary Rosenberg MD R2 Apr 29, 2016 10:08
[2016-04-29 11:15] VITALS: BP 109/74; PULSE 77; RESP 18; TEMP 97.9; O2SAT 92
[2016-04-29] MEDS ORDERED: BENZ100 PO (13:25)
[2016-05-06] MEDS ORDERED: LEVO25TA4 PO (09:39)
[2016-05-06] MEDS ORDERED: FLUV40CA3 PO (09:39)
[2016-05-06] MEDS ORDERED: CLOB0.055 TOPICAL (09:39)
[2016-05-06] MEDS ORDERED: MELA1CAP (09:39)
[2016-05-06] MEDS ORDERED: LORA-373 PO (09:39)
--- NOTE | 2016-05-17 10:17 | RSPPFT ---
DATE OF PROCEDURE: 04/28/16 COMMENTS: Spirometry is consistent with moderately severe airflow limitation. There is no significant improvement after inhalation of bronchodilator. IMPRESSION:
--- NOTE | 2016-06-20 05:47 | HHI.DS ---
Discharge Summary Admission Date Apr 25, 2016 at 12:34 Discharge Date: Jun 27, 2016 Admitting Diagnosis COPD Exacerbation (1) COPD exacerbation Diagnosis: Principal Plan: Patient admitted due to COPD exacerbation. Patient requiring 2 L/m of nasal cannula. -Supplemental oxygen as needed; wean oxygen to keep oxygen saturations above 89% -DuoNeb's Q4hrs while awake -Levaquin 750 mg by mouth daily for a total of 5 days of antibiotics, to be discharged with one additional dose -Albuterol nebulizer Q2hrs prn SOB -Prednisone 50 mg by mouth daily, to be discharged with steroid taper -Tessalon Perles scheduled TID -Robitussin-DM scheduled Q6hrs -Pulmonary function tests -Home O2 walk test tomorrow -Continue home medications: Pro-air 2 puffs Q6hrs PRN SOB Symbicort 2 puffs BID Spiriva 18mg inh daily Loratadine 10 mg daily Imaging: CXR 04/25/16: Changes characteristic of underlying emphysema. Coarse streaky opacity at the lung bases most consistent with scarring and or atelectasis. Work up: -Sputum culture from 04/25 with heavy growth of normal respiratory juan -Blood culture with no growth to date Antibiotic history: -Rocephin 1 g IV Q24hrs (04/26-04/28) -Azithromycin 500 mg po daily (04/26-04/28) (2) Constipation Diagnosis: Secondary Plan: Patient reports constipation. She reports that she has not had a bowel movement in a couple days. Cathleen-Colace one tab by mouth twice a day MiraLAX 17 g by mouth daily when necessary for constipation -Probiotic Lactinex 1 tab by mouth 3 times a day (3) Abnormal EKG Diagnosis: Secondary Plan: Patient reports history of abnormal EKG. She has been told that her EKG is abnormal several times in the past. She does not recall the exact abnormality. -EKG in the ED shows sinus rhythm, normal axis, ST deviation and moderate T- wave abnormality. -Initial troponin less than 0.02 x2, total creatinine kinase 134-->129, CK-MB less than 0.5-->0.7 -Patient continues to be asymptomatic, denies chest pain . (4) Anxiety Diagnosis: Secondary Plan: -Continue home citalopram (5) Hyperlipemia Diagnosis: Secondary Plan: -Pravastatin 20 mg po HS (6) Insomnia Diagnosis: Secondary Plan: -Melatonin 5 mg po HS prn (7) Hypothyroidism Diagnosis: Secondary Plan: Levothyroxine 25 g po daily (8) FEN/PPX Diagnosis: Secondary Plan: Fluids: None Electrolytes: WNL, continue to monitor Nutrition: Heart healthy diet DVT PPX: Heparin GI PPX: Protonix Brief History Patient is a 71-year-old female with past medical history significant for COPD, hyperlipidemia, anxiety, hypothyroidism presenting due to shortness of breath. Patient reports that she began to develop a cough on 04/22 and since this time her cough has become worse and she is progressively more short of breath. She has used her Spiriva, Symbicort, pro-air and has tried Mucinex and Vicks rub without any improvement. Cough is productive of thick green sputum. She has been able to walk 300 feet before she needs to stop due to shortness of breath. She last saw her geoscientist in February who ordered pulmonary function tests; however, patient has not been able to have this done. She denies any prior COPD exacerbations. She has not had fevers, chills and denies any sick contacts. She traveled to [place] from [place] on April 22. She is staying with friends until the end of May. Imaging Last Impressions CT Angiography 04/27/16 0000 Signed Impressions: Service Date/Time: Wednesday, April 27, 2016 17:22 - CONCLUSION: 1. Emphysematous changes with no acute infiltrate or pulmonary embolus. 2. Cholelithiasis. Villa Gallegos MD Chest X-Ray 04/25/16 1014 Signed Impressions: Service Date/Time: Monday, April 25, 2016 10:12 - CONCLUSION: 1. Changes characteristic of underlying emphysema. 2. Coarse streaky opacity at the lung bases most consistent with scarring and/or atelectasis. Fran Harrison MD PE at Discharge GENERAL: This is a well-nourished, well-developed woman patient. In no acute respiratory distress. Nasal cannula in place to 2 L/m. SKIN: No rashes, ecchymoses or lesions. Cool and dry. HEENT: Atraumatic. Normocephalic. Extraocular motions intact. No scleral icterus. Moist mucous membranes. Airway patent. CARDIOVASCULAR: Regular rate and rhythm without murmurs, gallops, or rubs. RESPIRATORY: Occasional wheeze in upper lung acharya. No use of accessory muscles , normal work of breathing. Patient speaking in full sentences. GASTROINTESTINAL: Abdomen soft, non-tender, nondistended. + bowel sounds. MUSCULOSKELETAL: Extremities without clubbing, cyanosis, trace lower extremity edema to knee bilaterally. No calf tenderness. NEUROLOGICAL: Awake and alert. Motor and sensory grossly within normal limits. Normal speech. Hospital Course Patient admitted due to COPD exacerbation. Patient required oxygen at 2 L/m via nasal cannula to keep oxygen saturations above 89%. Pt was treated with breathing treatments, cough medications, steroids, and antibiotics. Pt received Rocephin and Azithromycin from 04/26 to 04/28 and was discharged home with one additional dose of Levaquin for a 5 day course of antibiotics and a steroid taper. Pt also had home oxygen walk test, which she failed, so she was discharged home with supplemental home oxygen tank and with instructions to follow up with a geoscientist. Pt Condition on Discharge: Stable Discharge Disposition: Discharge Home Discharge Instructions DIET: Follow Instructions for: Heart Healthy Diet Activities you can perform: Regular-No Restrictions Other Activity Instructions: Wear nasal canula canula as needed. Follow up Referrals: Physician - 1 Week Pulmonology - 1 Week New Medications: Oxygen tank (Oxygen tank) 1 Ea Tank 2 LITER KAYODE.CANULA CONTINUOUS Oxygen Concentrator Portable Gaseous 2 L/min via Nasal Cannula Continuous For 99 months HYPOXEMIA PREVENTION #1 CYLINDER Prednisone (Prednisone) 10 Mg Tab 10 MG PO DAILY Take 20 mg po BID for 3 days, take 10 mg po bid for 3 days, take 10mg po daily for 3 days. #21 Ref 0 TAB Benzonatate (Tessalon Perles) 100 Mg Cap 200 MG PO TID #60 CAP Levofloxacin (Levaquin) 750 Mg Tab 750 MG PO Q24H #1 TAB Pantoprazole (Pantoprazole) 40 Mg Tab 40 MG PO DAILY #10 TAB Continued Medications: Albuterol 8.5 GM Inh (Proair Hfa 8.5 GM Inh) 90 Mcg/Act Aer 2 PUFF INH Q6H 108 mcg/actuation PRN SHORTNESS OF BREATH #1 Ref 0 INHALER Budesonide-Formoterol Inh (Symbicort Inh) 160-4.5 Mcg/Act Aero 2 PUFF INH Q12HR #1 Ref 0 INHALER Citalopram (Citalopram) 20 Mg Tab 20 MG PO HS Control Depression #30 Ref 0 TAB Fexofenadine (Mucinex Allergy) 180 Mg Tab 180 MG PO DAILY TAB Loratadine (Eq Allergy Relief) 10 Mg Tab 10 MG PO DAILY Tiotropium Inh (Spiriva Handihaler) 18 Mcg Cap 18 MCG INH DAILY 1 capsule = 18 mcg COPD #30 Ref 0 CAP Fran Kendrick MD R1 Jun 20, 2016 05:47
== END 2016-04-29 15:51 | disposition home or self-care (01) | DRG 191 ==
LOC: NEPC 09:08 → NEDA 12:34 → OBSVTOIN 12:34 → NEDH 16:47 → NEPHCDU 21:37
PROVIDERS: ADMIT Family Medicine; ATTEND Family Medicine
DX: J44.1 Chronic obstructive pulmonary disease with (acute) exacerbation (principal); N39.0 Urinary tract infection, site not specified; I10 Essential (primary) hypertension; E03.9 Hypothyroidism, unspecified; E78.5 Hyperlipidemia, unspecified; K59.00 Constipation, unspecified; R94.31 Abnormal electrocardiogram [ECG] [EKG]; F41.9 Anxiety disorder, unspecified; Z92.3 Personal history of irradiation; Z85.3 Personal history of malignant neoplasm of breast
CPT/HCPCS: 71010; 71275; 80048; 80053; 81001; 82550; 82552; 83880; 84484; 85025; 85027; 85610; 85730; 87040; 87070; 87086; 87205; 87804; 93005; 94060; 94150; 94620; 94640; 94664; 96365; 96375; J0456; J0696; J1644; J2405; J2920; J2930; J7050; J7512; J7613; Q9967